=== PATIENT | female | born 1955 | race Caucasian/White ===

== ENCOUNTER 2016-11-02 14:09 | Emergency (ER) | payer BC ==
[~2016-11-02] VITALS: Ht 157.5 cm; Wt 125.0 kg
[~2016-11-02 14:09] MED LIST: CLINDAMYCIN HC300 MG PO; CRESTOR10 MG PO; ESSENTIAL WOMA1 EACH PO; GLIPIZIDE10 MG PO; JANUVIA100 MG PO; LISINOPRIL20 MG PO; METFORMIN HCL1000 MG PO; OXYBUTYNIN CHLO10 MG PO; VENTOLIN HFA18 GM IH; ZOLOFT100 MG PO
[2016-11-02] MEDS ORDERED: DIABETA5 MG PO (14:30)
[2016-11-02 15:11] LABS: BASOPHIL COUNT 0.1 K/uL (0-0.1); EOSINOPHIL (%) 3.7 % (0-5); EOSINOPHIL COUNT 0.4 K/uL (0-0.3); HEMATOCRIT 41.2 % (36.0-46.0); IMMATURE GRANULOCYTE (%) 0.5 % (0.0-0.7); IMMATURE GRANULOCYTE COUNT 0.1 K/uL; INSTRUMENT ABS NEUTROPHIL CT 5.5 K/uL; LYMPHOCYTE COUNT 2.5 K/uL (1.0-2.8); MCH 30.7 PG (29.0-34.0); MEAN PLAT.VOLUME 10.1 uM^3 (9.5-12.4); MONOCYTE (%) 10.1 % (3-12); NEUTROPHIL (%) 58.5 % (45-76); NEUTROPHIL COUNT 5.5 K/uL (1.8-6.4); PLATELET COUNT 368 K/uL (156-360); RBC DIS.WIDTH-CV 12.6 % (11.8-14.6); RBC DIS.WIDTH-SD 43.5 % (39-53); RED BLOOD COUNT 4.43 M/uL (3.80-5.20); WHITE BLOOD COUNT 9.5 K/uL (4.1-10.2)
[2016-11-02 15:20] LABS: CHLORIDE 107 mEq/L (99-109); POTASSIUM 3.9 mEq/L (3.7-5.4); SODIUM 142 mEq/L (136-147)
[2016-11-02 15:21] LABS: GLUCOSE 126 mg/dL (70-99)
[2016-11-02 15:23] LABS: ANION GAP 9 MEQ/L (2-14)
[2016-11-02 15:25] LABS: GFR ESTIMATE (CALCULATED) > 59 mL/min/
[2016-11-02 15:26] LABS: UREA NITROGEN (BUN) 13 mg/dL (9-23)
[2016-11-02 15:32] LABS: TROP-I INTERPRETATION NEGATIVE; TROPONIN-I < 0.01 ng/mL (0.0-0.30)
[2016-11-02 15:44] LABS: ADD MIUA? NO; BILIRUBIN NEGATIVE; BLOOD NEGATIVE; COLOR YELLOW ((YELLOW)); GLUCOSE (STRIP) NEGATIVE; KETONES NEGATIVE; LEUKOCYTES NEGATIVE; NITRITE NEGATIVE; PROTEIN (STRIP) NEGATIVE; SPECIFIC GRAVITY 1.011 (1.000-1.030); UCUL ADDED? NO; UROBILINOGEN 0.2 MG/DL (0.2-1.0)
[2016-11-02] MEDS ORDERED: ANTIVERT25 MG PO (16:25)
[2016-11-02 16:34] VITALS: BP 119/53
== END 2016-11-02 18:22 | disposition home or self-care (01) ==
LOC: EME 14:09
PROVIDERS: Emergency Medicine
DX: R42 Dizziness and giddiness (principal); E11.9 Type 2 diabetes mellitus without complications; J44.9 Chronic obstructive pulmonary disease, unspecified; Z79.84 Long term (current) use of oral hypoglycemic drugs
CPT/HCPCS: 80048; 81003; 84484; 85025; 93005; 99281; 99284

== ENCOUNTER 2016-11-08 10:03 | Emergency (ER) | payer BC ==
[~2016-11-08] VITALS: Ht 157.5 cm; Wt 123.2 kg
[~2016-11-08 10:03] MED LIST changes: +ANTIVERT25 MG PO; +DIABETA5 MG PO
[2016-11-08] MEDS ORDERED: ULTRACET1 TABLET PO (13:56)
[2016-11-08 14:09] VITALS: BP 143/73
== END 2016-11-08 14:10 | disposition home or self-care (01) ==
LOC: EME 10:03
DX: M16.12 Unilateral primary osteoarthritis, left hip (principal); M79.605 Pain in left leg; I10 Essential (primary) hypertension; J44.9 Chronic obstructive pulmonary disease, unspecified; E11.9 Type 2 diabetes mellitus without complications; Z79.84 Long term (current) use of oral hypoglycemic drugs; Z86.718 Personal history of other venous thrombosis and embolism; F17.200 Nicotine dependence, unspecified, uncomplicated
CPT/HCPCS: 73502; 93971; 99281; 99284; J1885

== ENCOUNTER 2017-11-08 07:12 | Emergency (ER) | payer BC ==
[~2017-11-08] VITALS: Ht 154.9 cm; Wt 126.6 kg
[~2017-11-08 07:12] MED LIST changes: +ULTRACET1 TABLET PO
[2017-11-08] MEDS ORDERED: LANTUS 3 M100 UNITS1 SQ (08:18)
[2017-11-08] MEDS ORDERED: ZANTAC150 MG PO (09:21)
[2017-11-08] MEDS ORDERED: BENADRYL ALLERG25 MG PO (09:21)
[2017-11-08 09:30] VITALS: BP 174/69
== END 2017-11-08 09:41 | disposition home or self-care (01) ==
LOC: EME 07:12
DX: L53.9 Erythematous condition, unspecified (principal); T63.481A Toxic effect of venom of other arthropod, accidental (unintentional), initial encounter; Z91.038 Other insect allergy status; Y93.H9 Activity, other involving exterior property and land maintenance, building and construction; Y92.007 Garden or yard of unspecified non-institutional (private) residence as the place of occurrence of the external cause; I10 Essential (primary) hypertension; E11.9 Type 2 diabetes mellitus without complications; Z79.84 Long term (current) use of oral hypoglycemic drugs; J44.9 Chronic obstructive pulmonary disease, unspecified; F32.9 Major depressive disorder, single episode, unspecified; F17.200 Nicotine dependence, unspecified, uncomplicated
CPT/HCPCS: 99281; 99284; J1100